=== PATIENT | male | born 1945 | race Caucasian/White ===

== ENCOUNTER 2016-12-20 14:13 | Observation (INO) | payer MEDICARE ==
[~2016-12-20] VITALS: Ht 175.3 cm; Wt 64.8 kg
[2016-12-22] MEDS ORDERED: CENTRUM SILVER1 EAC1 PO (16:59)
[2016-12-22] MEDS ORDERED: ASPIRIN EC81 MG PO (16:59)
[2016-12-22] MEDS ORDERED: MIRALAX PACKET17 GM PO (17:00)
[2016-12-22] MEDS ORDERED: BACTRIM DS DPS1 TAB PO (17:00)
[2016-12-22] MEDS ORDERED: NORCO 7.5-3251 EACH PO (17:00)
[2016-12-22] MEDS ORDERED: CITRATE OF MAG296 ML PO (17:01)
--- NOTE | 2016-12-28 07:13 | OR ---
ADMIT: 12/20/2016 RM/LOC: 504 [facility] MR#: [id number] [facility] [address] [place] [id number] DEEPA MIRAMONTES [address] [place] [address] Operative/Delivery Room Report SEX: M AGE: 71 : 1945 SURGERY DATE: 12/20/2016 SURGEON: Jaden Lopez MD PREOPERATIVE DIAGNOSIS: Perirectal abscess. POSTOPERATIVE DIAGNOSIS: Perirectal abscess. PROCEDURE: Incision and drainage of perirectal abscess. ANESTHESIA: General. ESTIMATED BLOOD LOSS: 25 mL. DESCRIPTION OF PROCEDURE: The patient was taken to the operating room and placed supine on the operating room table. General anesthesia was established. The patient was placed in a lithotomy position. The perineum was prepped and draped in the standard surgical fashion. The area of induration and fluctuance on the right perirectal tissue was sharply incised to evacuate the pus. This was then explored. Any loculations were bluntly freed to allow adequate and complete drainage of the purulence. The wound was then irrigated with saline until there was no residual purulence. The wound was enlarged to a cruciate manner and then packed with 0.5 inch iodoform Nu Gauze. Dressing was placed after injection of local anesthetic. Sponge, needle, and instrument counts were correct at the end of the case. The patient tolerated the procedure well and transferred to the recovery area in stable condition. Jaden Lopez MD/ geri JOB #: [id number] CC: Jaden Lopez, Attending Physician Akbar Mckeon, Family Physician
[2017-02-04] MEDS ORDERED: CENTRUM SILVER1 EAC1 PO (10:46)
[2017-02-04] MEDS ORDERED: ASA CHILDREN'S81 MG PO (10:46)
[2017-02-04] MEDS ORDERED: NORCO 7.5-3251 EACH PO (10:46)
[2017-02-04] MEDS ORDERED: NEURONTIN DPS300 MG PO (10:46)
[2017-02-04] MEDS ORDERED: METAMUCIL SF P3.4 GM PO (10:47)
== END 2016-12-21 11:45 | disposition home or self-care (01) ==
LOC: SSS 14:13 → 5MS 18:28
PROVIDERS: ADMIT Surgery
PROC: 0D9P0ZZ Drainage of Rectum, Open Approach (ICD-10-PCS; principal; 2016-12-20)
DX: K61.1 Rectal abscess (principal); Z87.891 Personal history of nicotine dependence; Z85.038 Personal history of other malignant neoplasm of large intestine; Z79.891 Long term (current) use of opiate analgesic; Z79.899 Other long term (current) drug therapy

== ENCOUNTER → 2017-01-26 | Outpatient (CLI) | payer MEDICARE ==
[~2017-01-26] MED LIST: ASA CHILDREN'S81 MG PO; ASPIRIN EC81 MG PO; BACTRIM DS DPS1 TAB PO; CENTRUM SILVER1 EAC1 PO; CITRATE OF MAG296 ML PO; METAMUCIL SF P3.4 GM PO; MIRALAX PACKET17 GM PO; NEURONTIN DPS300 MG PO; NORCO 7.5-3251 EACH PO
== END | disposition home or self-care (01) ==
LOC: PTH.S 13:02 → RAD.S 14:30
DX: K62.89 Other specified diseases of anus and rectum (principal); Z85.048 Personal history of other malignant neoplasm of rectum, rectosigmoid junction, and anus

== ENCOUNTER 2017-02-02 06:12 | Observation (INO) | payer MEDICARE ==
[~2017-02-02] VITALS: Ht 175.3 cm; Wt 68.8 kg
[~2017-02-02 06:12] MED LIST changes: -ASA CHILDREN'S81 MG PO; -METAMUCIL SF P3.4 GM PO; -NEURONTIN DPS300 MG PO
[2017-02-04] MEDS ORDERED: NORCO 7.5-3251 EACH PO (10:46)
[2017-02-04] MEDS ORDERED: CENTRUM SILVER1 EAC1 PO (10:46)
[2017-02-04] MEDS ORDERED: NEURONTIN DPS300 MG PO (10:46)
[2017-02-04] MEDS ORDERED: ASA CHILDREN'S81 MG PO (10:46)
[2017-02-04] MEDS ORDERED: METAMUCIL SF P3.4 GM PO (10:47)
--- NOTE | 2017-02-04 20:44 | OR ---
ADMIT: 02/02/2017 RM/LOC: 632 [facility] MR#: [id number] [facility] [address] [place] [id number] DEEPA MIRAMONTES [address] [place] [address] Operative/Delivery Room Report SEX: M AGE: 71 : 1945 SURGERY DATE: 02/02/2017 SURGEON: Jaden Lopez MD PREOPERATIVE DIAGNOSIS: Rectal abscess. POSTOPERATIVE DIAGNOSIS: Rectal abscess. PROCEDURE: Rectal exam under anesthesia with incision and drainage of left- sided rectal abscess. ANESTHESIA: General. ESTIMATED BLOOD LOSS: 25 mL. FINDINGS: Left-sided rectal abscess without a clear communication to the right-sided previous abscess cavity and no identified internal opening of any fistulous tract. DESCRIPTION OF PROCEDURE: The patient was taken to the operating room and placed supine on the operating room table. General anesthesia was established. The patient was placed in lithotomy position. The perineum was prepped and draped in the standard surgical fashion. Inspection of the prior right abscess cavity revealed granulation tissue at the surface. The small tract was probed with lacrimal probe. I could not identify communication of the right tract to any internal fistulous opening or to extension into the left-sided abscess cavity. The margins of the granulation were cleaned and debrided with cautery and sharply. Cautery was used for hemostasis at this site. The fluctuant area in the left perirectal tissue was anesthetized with local anesthetic. A 15 blade scalpel was used to enter the abscess cavity. The underlying purulence was evacuated. This did extend along the margin of the anal and rectal tissue anteriorly and posteriorly for approximate 4-5 cm. This was irrigated until there was no residual purulence. A counter incision overlying the more lateral buttock tissue was made to be certain there was no un-drained cavity at this site. There was no expressed purulence from this area. The wound was then packed with 0.5 inch iodoform gauze dressing. Additional local anesthetic was injected. Sponge, needle, and instrument counts were correct at the end of the case. The patient tolerated the procedure well and transferred to the recovery area in stable condition. Jaden Lopez MD/ geri JOB #: [id number] CC: Jaden Lopez, Attending Physician Akbar Mckeon, Family Physician
== END 2017-02-03 10:00 | disposition home or self-care (01) ==
LOC: SSS 06:12 → 6PED 10:19 → SSS 16:38 → 6PED 02-03 10:00
PROVIDERS: ADMIT Surgery
PROC: 0D9P0ZZ Drainage of Rectum, Open Approach (ICD-10-PCS; principal; 2017-02-02)
DX: K61.1 Rectal abscess (principal); Z85.038 Personal history of other malignant neoplasm of large intestine; Z90.49 Acquired absence of other specified parts of digestive tract; Z98.890 Other specified postprocedural states